=== PATIENT | female | born 1945 | race Caucasian/White ===

== ENCOUNTER 2023-07-07 19:43 | Emergency (ER) | payer MEDICARE, SELFPAY ==
[2023-07-07 19:46] VITALS: BP 174/84; BMI 31.0
--- NOTE | 2023-07-07 20:42 | ED.GENMED ---
History of Present Illness
General
Chief Complaint: Breathing Problem
Source: patient
Exam Limitations: none
Time Seen by Provider: 07/07/23 20:28
Nursing documentation reviewed up to this point in time: agreed with
Travel History
Have you had any contact with someone who has COVID-19?: No
Do you have any symptoms of coronavirus? Fever > 100 degrees, chills, cough, shortness of breath, sore throat, loss of taste or smell, muscle aches, or headache?: No
History of Present Illness
History of Present Illness:
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
Gleevec 400 mg p.o. for the past 12 years. Thyroidectomy for CA. She states a week ago she developed head congestion, sinus congestion and then 2 days ago developed sore throat and everything has moved into her chest. She states when this happens
she has gotten pneumonia in the past. She saw her PCP 3 days ago and was started on Levaquin 500 milligrams daily she had a total of 3 doses. Also was given ipratropium and budesonide nebulizer and she used that yesterday and felt better but this
morning when she woke up her lungs felt tight again, her last nebulization was 7 PM at home.
Denies fever/chills, denies n/v/d/c. Denies chest pain.
Past History
Past History
ED Past Medical History: Cancer (CLL, thyroid CA w thyroidectomy) and COPD
ED Past Surgical History: Other (thyroidectomy)
Social History
Tobacco: Former smoker
Alcohol: Occasional
Personal: Single
Living: alone
Review of Systems
Review of Systems
Allergies reviewed?: Yes
All Other Systems: ROS reviewed and negative except as documented in HPI and ROS
Constitutional: Denies fever or chills
Respiratory: Reports cough and trouble breathing
Cardiac: Denies chest pain
ABD/GI: Denies abdominal pain, nausea or vomiting
: Denies dysuria or difficulty voiding
Musculoskeletal: Denies edema
Skin: Reports no symptoms
Neurological: Reports no symptoms
Phy Exam
Physical Exam
Physical Exam:
GENERAL: No acute distress. A&Ox3.
CONSTITUTIONAL: Afebrile.
EYES: There are, conjunctivae normal
Neck: Supple
ENMT: moist mucus membranes, Pharynx nl
RESPIRATORY: Regular respirations, nonlabored, lungs clear. Occasional dry cough noted.
CARDIOVASCULAR: Regular rate and rhythm, no murmurs, no rubs.
GI: Soft, nontender
MUSCULOSKELETAL: Moves with ease. Well perfused.
SKIN: Warm, dry, pink
PSYCH: Normal mood and affect. Well kept, interactive and appropriate
NEUROLOGIC: Awake, alert and oriented. No focal neurological deficits
Scores
Heart Failure Risk
Heart Failure Risk Score: Not Applicable
Course
Orders/Labs/Results
Orders:
Orders
07/07/23 19:54
Electrocardiogram (*1) Urgent
Reason for Study: Other
Other Reason for Exam: Respiratory Distress
EKG- Treatment ONCE
CR Chest - 2 Views Urgent
Comment:
Reason For Exam: respiratory distress
07/07/23 20:59
Complete Blood Count/With Diff Urgent
Comprehensive Metabolic Panel Urgent
07/07/23 23:03
Dexamethasone [Decadron] 10 mg PO NOW STA
Abnormal Lab Results
07/07/23
20:59
WBC 3.4 L 10^3/uL
(4.8-10.8)
RBC 4.15 L 10^6/uL
(4.20-5.40)
MCH 31.8 H pg
(27.0-31.0)
RDW 15.5 H %
(11.5-14.5)
MPV 11.2 H fL
(7.4-10.4)
Absolute Lymphs (auto) 0.9 L 10^3/uL
(1.2-3.4)
Monocytes % 19.0 H %
(1.7-9.3)
Eosinophils % 9.5 H %
(0-6)
Glucose 100 H mg/dl
(70-99)
Total Protein 5.7 L g/dl
(6.3-8.2)
07/07/23 20:59
07/07/23 20:59
Vital Signs
Initial and Last Documented VS:
Initial Vital Signs
Temp Pulse Resp BP Pulse Ox
97.8 F 82 18 174/84 94
07/07/23 19:46 07/07/23 19:46 07/07/23 19:46 07/07/23 19:46 07/07/23 19:46
Last Documented Vital Signs
Temp Pulse Resp BP Pulse Ox
97.8 F 82 18 174/84 94
07/07/23 19:46 07/07/23 19:46 07/07/23 19:46 07/07/23 19:46 07/07/23 19:46
MDM/Problems Addressed
Differential Diagnosis Includes:
Bronchitis, pneumonia
MDM/Problems Addressed:
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
Gleevec 400 mg p.o. for the past 12 years. Thyroidectomy for CA. She states a week ago she developed head congestion, sinus congestion and then 2 days ago developed sore throat and everything has moved into her chest. She states when this happens
she has gotten pneumonia in the past. She saw her PCP 3 days ago and was started on Levaquin 500 milligrams daily she had a total of 3 doses. Also was given ipratropium and budesonide nebulizer and she used that yesterday and felt better but this
morning when she woke up her lungs felt tight again, her last nebulization was 7 PM at home.
Denies fever/chills, denies n/v/d/c. Denies chest pain.
EKG: NSR w PACs
9:52 PM
CBC with no clinically significant abnormality
CMP normal
11:03 PM
chest x-ray reviewed with Dr. Covarrubias who agrees NAD
Because her lungs feel 'tight' and she states she has been wheezing although I hear no wheezing at this time, and she has history of COPD, she's already on Levaquin, I will put her on a short regimen of steroid
Chronic conditions affecting care: COPD and Cancer (CLL)
*Pulse Oximetry
Patient hypoxic: no
*EKG
Interpreted by ED Provider?: Yes
EKG Intrepretation Date: 07/07/23
Interpretation: normal
Rate: normal
Rhythm: sinus and PAC's
[place]: normal axis
Interval: normal interval
QRS Pattern: normal QRS
Ischemia: no ischemia
*Critical Care Note
Total Time (30-74mins, 75-104mins- exclusive of procedures): Not Applicable
Patient Management
Social determinants of health affecting care: Strong social support
ED Attending Note
-
Portions of this chart may have been created with voice recognition software.� Occasional wrong word or��sound alike� substitutions may have occurred due to the inherent limitations of voice recognition software.
Discharge Plan
Departure
Patient Disposition: Home (Routine Discharge)
Date of Disposition: 07/07/23
Time of Disposition: 23:04
Patient with high blood pressure during this ER visit?: No
Condition: Good
Discharge Problem:
Acute bronchitis
Instructions: Acute Bronchitis, Adult (DC)
Prescriptions:
New
prednisone 20 mg tablet
40 mg PO DAILY Qty: 6 0RF
Referrals:
Edwige Corley MD [Family Provider] - Follow up in 5-7 days
Activity Restrictions/Additional Instructions:
As we discussed, nothing worrisome in your workup here today.
I sent a prescription to your pharmacy for Prednisone 40 mg daily for 3 days.
See your doctor next week after the holiday weekend if not much improved by then
Interventions
Interventions:
*Risk Screen - Suicide Last Done: 07/07/23 19:46
*Neglect/Abuse Screening Last Done: 07/07/23 19:46
ED- Fall Risk Assessment Last Done: 07/07/23 19:46
*Nursing Disposition Last Done: 07/07/23 23:34
ED- Cardiac Assessment Last Done: 07/07/23 20:56
ED- Pulmonary Assessment Last Done: 07/07/23 20:56
Discharge Date and Time
Discharge Date/Time: 07/07/23 23:34
Print Language: ALBANIAN
[2023-07-07 21:14] LABS: % Basophils 0.6 % (0-2); % Eosinophils 9.5 % (0-6); % Immature Granulocytes 0.3 % (0-0.5); % Lymphocytes 25.5 % (20.5-51.1); % Neutrophils 45.1 % (42.2-75.2); Absolute Eosinophils 0.3 10^3/uL (0-0.7); Absolute Lymphocytes 0.9 10^3/uL (1.2-3.4); Absolute Monocytes 0.6 10^3/uL (0.1-0.6); Absolute Neutrophils 1.5 10^3/uL (1.4-6.5); Hematocrit 37.5 % (37.0-47.0); Hemoglobin 13.2 g/dL (12.0-16.0); Mean Corp Hgb Conc. 35.2 g/dL (33.0-37.0); Mean Corpuscular Hgb 31.8 pg (27.0-31.0); Mean Corpuscular Volume 90.4 fL (81.0-99.0); Mean Platelet Volume 11.2 fL (7.4-10.4); Nucleated Red Blood Cells % 0 %; Platelet Count 132 10^3/uL (130-400); Red Blood Cell Count 4.15 10^6/uL (4.20-5.40); Red Cell Dist. Width 15.5 % (11.5-14.5); White Blood Cell Count 3.4 10^3/uL (4.8-10.8)
[2023-07-07 21:29] LABS: ALT (SGPT) 12 U/L (0-35); AST (SGOT) 24 U/L (14-36); Albumin 3.6 g/dl (3.5-5.0); Alkaline Phosphatase 69 U/L (38-126); Blood Urea Nitrogen 17 mg/dl (7-17); Calcium 8.7 mg/dl (8.4-10.2); Carbon Dioxide 22 mmol/L (22-30); Chloride 107 mmol/L (98-107); Estimated Creatinine Clearance 46 ml/min; Glucose 100 mg/dl (70-99); Potassium 3.6 mmol/L (3.5-5.1); Sodium 138 mmol/L (135-145); Total Bilirubin 0.6 mg/dl (0.2-1.3); Total Protein 5.7 g/dl (6.3-8.2); eGFR > 60.00
[2023-07-07] MEDS: DECADRON 10 MG PO (23:25)
== END 2023-07-07 23:34 | disposition home or self-care (01) ==
LOC: EMR 19:43
PROVIDERS: Emergency Medicine; EMERGENCY PHYSICIAN Emergency Medicine; FAMILY PHYSICIAN Family Medicine
DX: J20.9 Acute bronchitis, unspecified (principal); R06.03 Acute respiratory distress; C91.10 Chronic lymphocytic leukemia of B-cell type not having achieved remission; J44.0 Chronic obstructive pulmonary disease with (acute) lower respiratory infection
CPT/HCPCS: 99285; 71046; 80053; 85025; 93005